=== PATIENT | male | born 1935 | race Caucasian/White ===

== ENCOUNTER 2017-01-24 14:50 | Outpatient (CLI) | payer MEDICARE, BC ==
--- NOTE | 2017-03-21 10:23 | RAD ---
RIGHT FOOT THREE VIEWS: 01/24/17 There is a tiny avulsion of cortex from the dorsum of the tarsal navicular near the talonavicular nicole int. This appears that it may be acute. No major fracture was seen elsewhere. The tarsal relations s eem normal. A calcaneal spur was noted. There is a large bony ossicle posterior to the ankle joint t hat may be an unusually shaped ossicle or the result of old trauma. IMPRESSION: Cortical avulsion from the dorsum of the tarsal navicular. Code T POS: HOME
== END 2017-01-24 14:51 | disposition home or self-care (01) ==
LOC: BURRAD 14:50
PROVIDERS: ATTEND Family Medicine
DX: M79.671 Pain in right foot (principal); S92.201A Fracture of unspecified tarsal bone(s) of right foot, initial encounter for closed fracture